=== PATIENT | female | born 1960 | race Caucasian/White ===

== ENCOUNTER 2024-05-11 05:49 | Day surgery (SDC) | payer BC ==
[2024-05-11] VITALS (10 sets, daily range): BP systolic 128–144; BP diastolic 69–86; PULSE 65–81; RESP 13–18; TEMP 97.3; O2SAT 93–100
[~2024-05-11] VITALS: Ht 165.1 cm; Wt 78.9 kg
[2024-05-11] MEDS: cefazolin 2gm/D5W 100mL 100 ML IV ONE (05:30)
[~2024-05-11 05:49] MED LIST: ALBU8HFA INH; AZEL137S4 BOTHNARES; CRAN500T4 PO; FLUT12AE5 INH; LEVO5TAB13 PO; MULT-1085 PO; MUPI22OI30; OLIVE LEAF EXTRACT PO; OMEG-166 PO; RED600CA2 PO; TRIA10.8 BOTHNARES; UBID100C16 PO; VIT C WITH ROSE HIPS PO; VIT D; [UNRECOGNIZED DRUG - OTHER]; albuterol 2.5 MG/3 ML nebule NEB ONE
[2024-05-11] MEDS ORDERED: Thrombin (Bovine) 5,000 unit vial TP ONE (06:12)
[2024-05-11] MEDS ORDERED: epiNEPHrine 1 mg/ml 30ml MDV ONE (06:12)
[2024-05-11] MEDS ORDERED: LIDOcaine 1% W/epiNEPHrine 1:100,000 20ml vial ONE (06:13)
[2024-05-11] MEDS ORDERED: cocaine 4% topical solution 4ml bottle ONE (06:13)
[2024-05-11] MEDS ORDERED: mupirocin 2% ointment 22GM ONE (06:13)
[2024-05-11] MEDS: ringers solution, lacted 1,000 ML IV SCH (06:39)
[2024-05-11] MEDS: oxymetazoline 15 ML nasal spray NS ONE (06:39)
[2024-05-11] MEDS: famotidine 20mg tablet PO ONE (06:39)
[2024-05-11] MEDS: LIDOcaine 1% W/epiNEPHrine 1:100,000 20ml vial IJ ONE (08:00)
[2024-05-11] MEDS ORDERED: sevoflurane 250ml liquid IH ONE (08:04)
[2024-05-11] MEDS ORDERED: midazolam 1 mg/ML 2ml injection ONE (08:09)
[2024-05-11] MEDS ORDERED: fentaNYL/PF 50MCG/1 ML 2ML syringe ONE (08:09)
[2024-05-11] MEDS ORDERED: 0.9 % SODIUM CHLORIDE 10 ML VIAL ONE (08:37)
[2024-05-11] MEDS ORDERED: ePHEDrine 50MG/ML INJ. ONE (08:37)
[2024-05-11] MEDS ORDERED: ondansetron/PF 4mg/2ml inj ONE (08:37)
[2024-05-11] MEDS ORDERED: propofol inj 20 ML IV ONE (08:38)
[2024-05-11] MEDS ORDERED: LIDOcaine 2% (20mg/ml) 5ml vial ONE (08:38)
[2024-05-11] MEDS ORDERED: dexamethasone sod phosphate 4mg/ml inj. ONE (08:38)
[2024-05-11] MEDS ORDERED: meperidine/PF 25mg/ml syringe IV PRN ×3 (09:20)
[2024-05-11] MEDS ORDERED: ringers solution, lacted 1,000 ML IV SCH (09:20)
[2024-05-11] MEDS ORDERED: ondansetron/PF 4mg/2ml inj IV PRN (09:20)
[2024-05-11] MEDS ORDERED: acetaminophen 1,000mg/100ml IV 100 ML IV ONE (09:20)
[2024-05-11] MEDS ORDERED: labetalol 20mg/4ml (5mg/ml) syringe IV PRN (09:20)
[2024-05-11] MEDS ORDERED: morphine 2 MG/ML inj. syringe IV PRN (09:20)
[2024-05-11] MEDS ORDERED: proCHLORperazine 10 MG/2 ml inj IV PRN (09:20)
[2024-05-11] MEDS ORDERED: hydrALAZINE 20mg/ml inj. IV PRN (09:20)
[2024-05-11] MEDS ORDERED: morphine 4 MG/ML inj SYRINge IV PRN (09:20)
[2024-05-11] MEDS ORDERED: salt irrigation nasal spray 45 ML SPRAY NS PRN (09:50)
== END 2024-05-11 11:10 | disposition home or self-care (01) ==
LOC: PAS 05:49
PROVIDERS: ATTEND Otolaryngology
DX: J34.2 Deviated nasal septum (principal); J34.3 Hypertrophy of nasal turbinates; Z98.51 Tubal ligation status; Z87.440 Personal history of urinary (tract) infections; Z72.89 Other problems related to lifestyle; Z79.899 Other long term (current) drug therapy; G47.30 Sleep apnea, unspecified
CPT/HCPCS: 30140; 30520; 82948; 93005; A6402; J0690; J1100; J2250; J2405; J2704; J3010; J3490; J7030; J7120; Z7506; Z7508; Z7512; A4618; A6449; A7000; J0171